=== PATIENT | male | born 1955 | race Caucasian/White ===

== ENCOUNTER → 2017-12-21 | Outpatient (CLI) | payer OTHER ==
[~2017-12-21] MED LIST: ASPIR 8181 MG PO; ATORVASTATIN CA40 MG PO; BACTRIM DS TAB1 EACH PO; CENTRUM SILVER1 EAC2 PO; FERREX 150 PLU1 EAC1 PO; KEFLEX500 MG PO; LISINOPRIL2.5 MG PO; LOPRESSOR25 PO; MAGNESIUM OXID400 MG PO; NASACORT10.8 ML NS; ONDANSETRON HCL4 M2 PO; PROBIOTIC1 EAC1 PO; ROBAXIN500 MG PO; TOPROL XL25 MG PO; VENTOLIN HFA 1818 GM INH; ZYRTEC10 MG PO
--- NOTE | 2017-12-21 12:51 | EXE ---
[place] [address] STRESS ECHOCARDIOGRAM Name: RASHI MACE Room: [facility]#: [id number] Admission: 12/21/17 Attend Phys: Kendall Cummings, Discharge: Date of : 59 Date of Service: 12/21/17 1251 Report #: [id number] THIS REPORT FOR: //name// APPROVED REPORT Study performed: 12/21/2017 11:39:58 Exam: Stress Echocardiogram Indication: CAD Patient Location: Out-Patient Stress Nurse: Cristy Hung RN Supervising Physician: Kendall Cummings MD Status: routine Ht: 5 ft 7 in HR: 69 bpm BP: 150/85 mmHg Rhythm: NSR Medical History Cardiac Risk Factors: Hyperlipidemia, HTN, FHX of CAD Previous Cardiac Procedures: CABG Procedure The patient underwent an Exercise Stress Test using the Jeremie Protocol. Blood pressure, heart rate, and EKG were monitored. An Echocardiogram was performed by echo technician in four stages in quad fashion. At peak stress, four selected images were obtained and placed side by side with resting images for comparison. Stress Test Details Stress Test: Exercise stress testing was performed using a Jeremie protocol. HR Resting HR: 69 bpm Max Heart Rate (APMHR): 160 bpm Max HR Achieved: 150 bpm Target HR (85% APMHR): 136 bpm % of APMHR: 93 Recovery HR: 91 bpm HR response to stress: Normal HR response to stress BP Resting BP: 150/85 mmHg Max BP: 162/70 mmHg Recovery BP: 153/[place] [address] STRESS ECHOCARDIOGRAM Name: RASHI MACE Room: [facility]#: [id number] Admission: 12/21/17 Attend Phys: Kendall Cummings, Discharge: Date of : 59 Date of Service: 12/21/17 1251 Report #: [id number] [id number] ECG: Sinus Rhythm Stress ECG: Sinus Rhythm ST Change: Normal Recovery ECG: Sinus Rhythm Recovery ST Change: Normal Clinical Reason for Termination: Completed protocol Stress Symptoms: Fatigue Exercise duration: 9 min 30 sec Highest Stage Achieved: Stage 4: 4.2 mph at 16% grade. Exercise capacity: 10.94 METs Stress ECG Conclusion neg ecg Pre-Stress Echo The resting Echocardiogram showed normalabnormal left ventricular contractility with an estimated Ejection Fraction of about 45-50%. The resting Echocardiogram demonstrated wall motion abnormality in the inferior wall. Post-Stress Echo LV chamber size decreases, LV ejection fraction increases, no new wall motion abnormalities are seen. Conclusion Clinical Response: Non-ischemic Exercise Capacity: Average Stress ECG Response: Non-ischemic Stress Echo Images: Indeterminant Evidence of prior Inferior CA, however,no new wall motion abnormalities are present post stress. A perfusion nuclear stress test may be more helpful if clinically indicated.Borderline reduction in systolic function is present. Other Information Study Quality: Good <Conclusion> Evidence of prior Inferior CA, however,no new wall motion abnormalities are present post stress. [place] [address] STRESS ECHOCARDIOGRAM Name: RASHI MACE Room: [facility]#: [id number] Admission: 12/21/17 Attend Phys: Kendall Cummings, Discharge: Date of : 59 Date of Service: 12/21/17 1251 Report #: [id number] test may be more helpful if clinically indicated.Borderline reduction in systolic function is present. <ELECTRONICALLY SIGNED> By: Kendall Cummings MD, FACC 12/21/17 1251 50 50 Kendall Cummings MD, FACC /INF
== END ==
LOC: M.CRD 10:38
DX: I25.10 Atherosclerotic heart disease of native coronary artery without angina pectoris (principal); Z95.1 Presence of aortocoronary bypass graft

== ENCOUNTER 2018-05-14 18:17 | Emergency (ER) | payer OTHER ==
[~2018-05-14] VITALS: Ht 170.2 cm; Wt 79.4 kg
[2018-05-14] MEDS ORDERED: NORCO 5-325 TA1 EACH PO (19:39)
[2018-05-14 20:07] VITALS: BP 131/77
== END 2018-05-14 20:08 | disposition home or self-care (01) ==
LOC: M.ERS 18:17
DX: S93.521A Sprain of metatarsophalangeal joint of right great toe, initial encounter (principal); Z95.1 Presence of aortocoronary bypass graft; Z95.5 Presence of coronary angioplasty implant and graft; Z88.0 Allergy status to penicillin; Z88.1 Allergy status to other antibiotic agents; Z88.2 Allergy status to sulfonamides; X50.9XXA Other and unspecified overexertion or strenuous movements or postures, initial encounter; Y93.89 Activity, other specified; Y92.89 Other specified places as the place of occurrence of the external cause; Y99.8 Other external cause status